=== PATIENT | female | born 1955 | race African-American/Black ===

== ENCOUNTER 2020-10-17 05:42 | Inpatient (IN) | payer MEDICARE, MEDICAID ==
[~2020-10-17] VITALS: Ht 162.6 cm; Wt 89.8 kg
[2020-10-17] MEDS ORDERED: MORPHINE SULFATE 4 MG/ML CPJ (NOT FOR IM USE) IV STA (06:04)
[2020-10-17] MEDS ORDERED: PIPERACILLIN/TAZ 3.375G PREMIX 50 ML IV ONE (06:15)
[2020-10-17] MEDS ORDERED: VANCOMYCIN 1 G PREMIX 200 ML IV ONE (06:15)
[2020-10-17 08:25] LABS: HEMATOCRIT. 39.9 % (36.0-48.0); HEMOGLOBIN. 12.8 g/dL (12.0-16.0); MEAN CORPUSCULAR HEMOGLOBIN 27.2 pg (28.0-32.0); MEAN CORPUSCULAR VOLUME 84.8 fL (81.0-99.0); MEAN PLATELET VOLUME 8.9 fl (7.4-10.4); PLATELET 187 x1000/uL (130-400); RED BLOOD CELL COUNT 4.71 mill/uL (4.2-5.4); RED CELL DISTRIBUTION WIDTH 18.7 % (11.6-14.6)
[2020-10-17 08:32] LABS: BG BASE EXCESS 0.5 mmol/L (-2.0-2.0); BG CARBOXYHEMOGLOBIN 2.2 % (0.5-1.5); BG DEOXYHEMOGLOBIN 9.6 % (0.0-5.0); BG HCO3 ACT 26.2 mmol/L (22.0-26.0); BG METHEMOGLOBIN 0.2 % (0.0-1.5); BG OXYGEN SATURATION 90.2 % (92.0-98.5); BG PCO2 46.2 mmHg (35.0-45.0); BG PH 7.371 (7.350-7.450); BG PO2 58.4 mmHg (75.0-100.0); BG SAMPLE SITE LEFT BRACHIAL; BG TOTAL HEMOGLOBIN 13.1 g/dL (12.0-18.0); BG VENT MODE ROOM AIR
[2020-10-17 08:47] LABS: CHLORIDE 98 mEq/L (98-107)
[2020-10-17 09:39] LABS: PLATELET ESTIMATE NORMAL
[2020-10-17] MEDS ORDERED: MAGNESIUM/ALUMINUM HYDROXIDE/SIMETHICONE 30ML UDC PO PRN (10:15)
[2020-10-17] MEDS ORDERED: IPRATROPIUM/ALBUTEROL 0.5-3(2.5)MG/3ML NEB NEB PRN (10:15)
[2020-10-17] MEDS ORDERED: ONDANSETRON HCL 4MG/2ML INJ IV PRN (10:15)
[2020-10-17] MEDS ORDERED: PIPERACILLIN/TAZ 3.375G PREMIX 50 ML IV SCH (10:15)
[2020-10-17] MEDS ORDERED: NITROGLYCERIN 0.4MG TABLET SL SL PRN (10:15)
[2020-10-17] MEDS ORDERED: CLONIDINE 0.1MG TABLET PO PRN (10:15)
[2020-10-17] MEDS ORDERED: ACETAMINOPHEN 325MG TABLET PO PRN ×2 (10:15)
[2020-10-17] MEDS ORDERED: TRAMADOL 50MG TABLET PO PRN (10:15)
[2020-10-17] MEDS ORDERED: DOCUSATE SODIUM 100MG CAPSULE PO PRN (10:15)
[2020-10-17] MEDS ORDERED: GUAIFENESIN 200MG/10ML SUGAR FREE UDC PO PRN (10:15)
[2020-10-17] MEDS ORDERED: PIPERACILLIN/TAZOBACTAM 2.25G in DEXTROSE 5% WATER 50ML IV SCH (11:30)
[2020-10-17 11:57] VITALS: BP 128/66
[2020-10-17 12:00] VITALS: BP 143/82
[2020-10-17] MEDS ORDERED: VANCOMYCIN 1250MG in DEXTROSE 5% WATER 250ML IV NR (12:00)
[2020-10-17 12:10] LABS: HEPATITIS B SURFACE ANTIGEN NEGATIVE
[2020-10-17 12:40] LABS: HEPATITIS A AB IGM NEGATIVE (NEGATIVE)
[2020-10-17 12:43] LABS: FOLIC ACID (FOLATE) SERUM >20 ng/mL ng/mL (>5.38)
[2020-10-17 12:54] LABS: VITAMIN B12 SERUM >2000 pg/mL pg/mL (211-911)
[2020-10-17] MEDS: ENOXAPARIN 30MG/0.3ML SYR SUBCUT SCH (13:21)
[2020-10-17] MEDS: SEVELAMER CARBONATE 800 MG TABLET PO SCH ×2 (13:25→18:06)
[2020-10-17] MEDS ORDERED: NALOXONE HCL 0.4MG/ML VIAL IV PRN (13:30)
[2020-10-17] MEDS: PIPERACILLIN/TAZOBACTAM 2.25G in DEXTROSE 5% WATER 50ML IV SCH ×2 (15:29→21:23)
[2020-10-17 16:00] VITALS: BP 140/92
[2020-10-17 17:15] LABS: CREATINE KINASE MB FRACTION 3.8 ng/mL (0.5-3.6)
[2020-10-17 20:00] VITALS: BP 132/68
[2020-10-17] MEDS ORDERED: VANCOMYCIN 750 MG PREMIX 150 ML IV SCH (21:00)
[2020-10-17] MEDS: FAMOTIDINE 20MG TABLET PO SCH (21:23)
[2020-10-17] MEDS: METOPROLOL TARTRATE 25MG TABLET PO SCH (21:23)
[2020-10-17] MEDS: ASCORBIC ACID 500 MG TABLET PO SCH (21:23)
[2020-10-17] MEDS: MORPHINE SULFATE 2 MG/ML CPJ (NOT FOR IM USE) IV PRN (21:24)
[2020-10-17] MEDS ORDERED: ISOS60TA76 PO (22:25)
[2020-10-17] MEDS ORDERED: FURO40TA5 PO (22:25)
[2020-10-17] MEDS ORDERED: WARF-67 PO (22:25)
[2020-10-17] MEDS ORDERED: TRAM50TA3 PO (22:25)
[2020-10-17] MEDS ORDERED: HYDR-4135 PO (22:25)
[2020-10-17] MEDS ORDERED: CARV12.545 PO (22:25)
[2020-10-17] MEDS ORDERED: REN800 PO (22:25)
[2020-10-17] MEDS ORDERED: FERR325T23 PO (22:25)
[2020-10-17] MEDS: ZOLPIDEM TARTRATE 5MG TABLET PO PRN (23:09)
[2020-10-18] VITALS: BP 107/50
[2020-10-18 01:11] LABS: CREATINE KINASE MB FRACTION 4.4 ng/mL (0.5-3.6)
[2020-10-18 04:00] VITALS: BP 112/59
[2020-10-18] MEDS: PIPERACILLIN/TAZOBACTAM 2.25G in DEXTROSE 5% WATER 50ML IV SCH ×3 (06:42→22:16)
[2020-10-18 07:31] LABS: HEMATOCRIT. 38.6 % (36.0-48.0); HEMOGLOBIN. 12.1 g/dL (12.0-16.0); MEAN CORPUSCULAR HEMOGLOBIN 26.9 pg (28.0-32.0); MEAN CORPUSCULAR VOLUME 85.6 fL (81.0-99.0); MEAN PLATELET VOLUME 9.6 fl (7.4-10.4); PLATELET 184 x1000/uL (130-400); RED BLOOD CELL COUNT 4.51 mill/uL (4.2-5.4); RED CELL DISTRIBUTION WIDTH 18.7 % (11.6-14.6)
[2020-10-18 08:20] VITALS: BP 126/65
[2020-10-18 09:00] LABS: CHLORIDE 98 mEq/L (98-107)
[2020-10-18] MEDS ORDERED: ASPIRIN 81MG EC TABLET PO SCH (09:00)
[2020-10-18 09:04] LABS: PHOSPHORUS 3.7 mg/dL (2.5-4.9)
[2020-10-18] MEDS: SEVELAMER CARBONATE 800 MG TABLET PO SCH ×3 (09:51→17:50)
[2020-10-18] MEDS: ZINC SULFATE 220 MG ( 50 ) CAPSULE PO SCH (09:51)
[2020-10-18] MEDS: ASCORBIC ACID 500 MG TABLET PO SCH ×2 (09:52→22:16)
[2020-10-18] MEDS: CHOLECALCIFEROL (D3) 1000 UNIT TABLET PO SCH (09:52)
[2020-10-18] MEDS: METOPROLOL TARTRATE 25MG TABLET PO SCH ×2 (10:00→18:05)
[2020-10-18] MEDS ORDERED: METOPROLOL TARTRATE 25MG TABLET PO NR (11:45)
[2020-10-18] MEDS ORDERED: VANCOMYCIN 750 MG PREMIX 150 ML IV SCH (12:00)
[2020-10-18] MEDS: ENOXAPARIN 30MG/0.3ML SYR SUBCUT SCH (12:13)
[2020-10-18 12:30] VITALS: BP 116/54
[2020-10-18 16:00] VITALS: BP 126/79
[2020-10-18 16:56] LABS: PLATELET ESTIMATE NORMAL
[2020-10-18 20:00] VITALS: BP 114/63
[2020-10-18] MEDS: FAMOTIDINE 20MG TABLET PO SCH (22:16)
[2020-10-18] MEDS: MORPHINE SULFATE 2 MG/ML CPJ (NOT FOR IM USE) IV PRN (22:16)
[2020-10-18] MEDS: ZOLPIDEM TARTRATE 5MG TABLET PO PRN (22:59)
[2020-10-19] VITALS: BP 107/53
[2020-10-19 04:00] VITALS: BP 105/63
[2020-10-19] MEDS: MORPHINE SULFATE 2 MG/ML CPJ (NOT FOR IM USE) IV PRN ×2 (04:26→23:08)
[2020-10-19] MEDS: PIPERACILLIN/TAZOBACTAM 2.25G in DEXTROSE 5% WATER 50ML IV SCH ×2 (06:00→15:53)
[2020-10-19 08:00] VITALS: BP 120/63
[2020-10-19 08:26] LABS: HEMATOCRIT. 38.7 % (36.0-48.0); HEMOGLOBIN. 12.2 g/dL (12.0-16.0); MEAN CORPUSCULAR HEMOGLOBIN 26.9 pg (28.0-32.0); MEAN CORPUSCULAR VOLUME 85.4 fL (81.0-99.0); MEAN PLATELET VOLUME 9.4 fl (7.4-10.4); PLATELET 181 x1000/uL (130-400); RED BLOOD CELL COUNT 4.53 mill/uL (4.2-5.4)
[2020-10-19 08:51] LABS: PHOSPHORUS 4.1 mg/dL (2.5-4.9)
[2020-10-19] MEDS: METOPROLOL TARTRATE 25MG TABLET PO SCH ×2 (09:00→17:00)
[2020-10-19] MEDS: ZINC SULFATE 220 MG ( 50 ) CAPSULE PO SCH (09:50)
[2020-10-19] MEDS: ASCORBIC ACID 500 MG TABLET PO SCH ×2 (09:50→21:00)
[2020-10-19] MEDS: CHOLECALCIFEROL (D3) 1000 UNIT TABLET PO SCH (09:50)
[2020-10-19] MEDS: SEVELAMER CARBONATE 800 MG TABLET PO SCH ×3 (10:00→18:06)
[2020-10-19 11:53] VITALS: BP 120/62
[2020-10-19 14:19] LABS: NUCLEATED RED BLOOD CELLS 1 /100 WBC
[2020-10-19 14:20] LABS: PLATELET ESTIMATE NORMAL
[2020-10-19 16:13] VITALS: BP 117/61
[2020-10-19] MEDS ORDERED: IOHEXOL-350 100 ML BOTTLE ONE (18:35)
[2020-10-19] MEDS ORDERED: ENOXAPARIN 100MG/ML SYR SUBCUT SCH ×2 (19:00→20:00)
[2020-10-19] MEDS ORDERED: GENTAMICIN 120MG PREMIX 100 ML IV NR (19:30)
[2020-10-19 20:00] VITALS: BP 125/55
[2020-10-19] MEDS: FAMOTIDINE 20MG TABLET PO SCH (21:00)
[2020-10-20] VITALS: BP 129/84
[2020-10-20] MEDS: ZOLPIDEM TARTRATE 5MG TABLET PO PRN (00:13)
[2020-10-20 04:00] VITALS: BP 124/44
[2020-10-20 07:08] LABS: BASOPHILS % 0.3 % (0.0-2.0); EOSINOPHILS % 0.9 % (0.0-5.0); HEMATOCRIT. 38.6 % (36.0-48.0); HEMOGLOBIN. 12.2 g/dL (12.0-16.0); LYMPHOCYTES % 10.9 % (20.0-50.0); MEAN CORPUSCULAR HEMOGLOBIN 26.4 pg (28.0-32.0); MEAN CORPUSCULAR VOLUME 83.5 fL (81.0-99.0); MEAN PLATELET VOLUME 9.1 fl (7.4-10.4); MONOCYTES % 12.7 % (2.0-8.0); NEUTROPHILS % 75.2 % (40.0-76.0); PLATELET 206 x1000/uL (130-400); RED BLOOD CELL COUNT 4.62 mill/uL (4.2-5.4); RED CELL DISTRIBUTION WIDTH 19.2 % (11.6-14.6)
[2020-10-20 07:44] LABS: PHOSPHORUS 3.8 mg/dL (2.5-4.9)
[2020-10-20 08:16] VITALS: BP 118/59
[2020-10-20] MEDS: SEVELAMER CARBONATE 800 MG TABLET PO SCH ×2 (09:27→12:50)
[2020-10-20] MEDS: CHOLECALCIFEROL (D3) 1000 UNIT TABLET PO SCH (09:27)
[2020-10-20] MEDS: ASCORBIC ACID 500 MG TABLET PO SCH (09:27)
[2020-10-20] MEDS: METOPROLOL TARTRATE 25MG TABLET PO SCH (09:27)
[2020-10-20] MEDS: ZINC SULFATE 220 MG ( 50 ) CAPSULE PO SCH (09:28)
[2020-10-20 12:14] VITALS: BP 118/64
== END 2020-10-20 13:42 | disposition left against medical advice (07) | DRG 871 ==
LOC: ER 05:42 → 6WST 09:46 → SUPCPDRO 10:03 → EDBEDREQTM 10:07 → EDBEDREQ 10:07 → ENRESERV 10:22 → CANRESERV 10:22 → CANBEDREQ 10:24 → ENRESERV 10:24
PROVIDERS: ADMIT Internal Medicine; ATTEND Internal Medicine
PROC: 5A1D70Z Performance of Urinary Filtration, Intermittent, Less than 6 Hours Per Day (ICD-10-PCS; principal; 2020-10-17)
PROC: 5A1D70Z Performance of Urinary Filtration, Intermittent, Less than 6 Hours Per Day (ICD-10-PCS; 2020-10-19)
DX: A41.50 Gram-negative sepsis, unspecified (principal); N18.6 End stage renal disease; I50.43 Acute on chronic combined systolic (congestive) and diastolic (congestive) heart failure; E44.0 Moderate protein-calorie malnutrition; I96 Gangrene, not elsewhere classified; I13.2 Hypertensive heart and chronic kidney disease with heart failure and with stage 5 chronic kidney disease, or end stage renal disease; I42.0 Dilated cardiomyopathy; N25.81 Secondary hyperparathyroidism of renal origin; E87.1 Hypo-osmolality and hyponatremia; G93.40 Encephalopathy, unspecified; I48.92 Unspecified atrial flutter; D64.9 Anemia, unspecified; L84 Corns and callosities; E03.9 Hypothyroidism, unspecified; S80.812A Abrasion, left lower leg, initial encounter; X58.XXXA Exposure to other specified factors, initial encounter; K80.20 Calculus of gallbladder without cholecystitis without obstruction; Z99.2 Dependence on renal dialysis; Z95.810 Presence of automatic (implantable) cardiac defibrillator; Z68.34 Body mass index [BMI] 34.0-34.9, adult; Z82.49 Family history of ischemic heart disease and other diseases of the circulatory system; Z99.3 Dependence on wheelchair; Y93.89 Activity, other specified; Y92.89 Other specified places as the place of occurrence of the external cause; Y99.8 Other external cause status; Z95.828 Presence of other vascular implants and grafts; L03.031 Cellulitis of right toe; I48.0 Paroxysmal atrial fibrillation; B96.89 Other specified bacterial agents as the cause of diseases classified elsewhere
CPT/HCPCS: 36415; 36600; 71045; 73110; 73630; 75635; 80048; 80053; 80061; 80170; 80202; 82375; 82550; 82553; 82607; 82746; 82805; 83036; 83540; 83550; 83605; 83735; 83880; 84100; 84484; 85025; 86705; 86709; 86803; 87077; 87186; 87340; 93005; 93306; 93923; 93970; 93971; 99285; J1580; J1650; J2270; J2405; J2543; J3370; J7060; Q9967